=== PATIENT | male | born 1955 | race Caucasian/White ===

== ENCOUNTER → 2016-08-18 | Outpatient (CLI) | payer BC ==
[~2016-08-18] MED LIST: BYSTOLIC10 MG PO; FENOFIBRATE134 MG PO; FLOMAX0.4 M1 PO; LESCOL XL80 MG PO
[2016-08-18 15:30] LABS: POC - CREATININE 1.54 mg/dL (0.64-1.27)
== END | disposition home or self-care (01) ==
LOC: CCAT 14:21
PROVIDERS: Internal Medicine Hematology & Oncology
DX: C85.88 Other specified types of non-Hodgkin lymphoma, lymph nodes of multiple sites (principal); Z53.9 Procedure and treatment not carried out, unspecified reason
CPT/HCPCS: 82565

== ENCOUNTER → 2016-08-20 | Outpatient (CLI) | payer BC ==
--- NOTE | ~2016-08-20 | CT55 ---
[facility] A Service of [facility] & [facility] RADIOLOGY TEXT RESULTS PATIENT: ASHLEY LUNA LOCATION: [facility] : 53 UNIT #: [id number] AGE: [address]: Rita Blackwell MD SEX: M ORDER DR: [id number] [facility] [address] [place], [place] [address] [id number] O MR#: [id number] Acc #: [id number] NAME: ASHLEY LUNA : 1955 SEX: M STUDY DATE/TIME: 08/20/2016 10:52 UNIT: [facility] ROOM: STUDY DESCRIPTION: CT Chest W Con Attending Physician: Rita Blackwell M.D., Ph.D. Ordering Physician: Rita Blackwell M.D., Ph.D. Primary Care Physician: No Primary Care Physician MEDICAL IMAGING REPORT This report is preliminary unless electronic signature is present EXAM CT chest with contrast 08/20/2016 INDICATIONS Restaging non Hodgkin lymphoma. Observation for response to therapy and metastatic disease. PROCEDURE Contrast-enhanced CT chest. 100 mL of Isovue-370. This CT exam was performed with one or more of the following radiation dose reduction techniques: automatic exposure control, adjustment of mA and/or kV according to patient size, and iterative reconstruction. COMPARISON 02/01/2016 FINDINGS Lungs are clear. There is some scarring anterior right upper lobe and medial right lower lobe. No adenopathy. No aggressive appearing bone lesion. Aortic root measures up to 4.1 cm, previously measured at 4.3 cm. Refer to the separately dictated abdomen and pelvis CT for findings below the diaphragm. IMPRESSION No adenopathy in the chest. Dilation of the aortic root is similar to the prior. Dictated by... Neeraj Moser M.D. THIS IS AN ELECTRONICALLY VERIFIED REPORT [facility] A Service of [facility] & [facility] RADIOLOGY TEXT RESULTS PATIENT: ASHLEY LUNA LOCATION: [facility] : 53 UNIT #: [id number] AGE: [address]: Rita Blackwell MD SEX: M ORDER DR: Neeraj Moser M.D. at 08/20/2016 5:05 PM Gwen TD: 08/20/2016 16:13 JOB #: [id number] MEDICAL IMAGING REPORT COPY
--- NOTE | ~2016-08-20 | CT2 ---
[facility] A Service of [facility] RADIOLOGY TEXT RESULTS PATIENT: ASHLEY LUNA LOCATION: [facility] : 53 UNIT #: [id number] AGE: [address]: Rita Blackwell MD SEX: M ORDER DR: [id number] [facility] [address] [place], [place] [address] [id number] O MR#: [id number] Acc #: [id number] NAME: ASHLEY LUNA : 1955 SEX: M STUDY DATE/TIME: 08/20/2016 10:52 UNIT: [facility] ROOM: STUDY DESCRIPTION: CT Abd and Pelv W Cont Attending Physician: Rita Blackwell M.D., Ph.D. Ordering Physician: Rita Blackwell M.D., Ph.D. Primary Care Physician: No Primary Care Physician MEDICAL IMAGING REPORT This report is preliminary unless electronic signature is present EXAM CT abdomen and pelvis with contrast. INDICATION Restaging lymphoma. Observation for response to therapy and disease progression. PROCEDURE Contrast-enhanced CT of the abdomen and pelvis. 100 mL of Isovue-370. This CT exam was performed with one or more of the following radiation dose reduction techniques: automatic exposure control, adjustment of mA and/or kV according to patient size, and iterative reconstruction. COMPARISON 02/01/2016 FINDINGS ABDOMEN WITH CONTRAST: Refer to the separately dictated chest CT for thoracic findings. The liver, spleen, adrenal glands, pancreas unremarkable. Previous cholecystectomy. There are bilateral renal cysts, largest upper pole of the left kidney measures 4.3 cm. The bowel loops are nondilated. Patient is status post left hemicolectomy with a left mid abdominal colostomy. No pathologically enlarged abdominal lymph nodes. PELVIS WITH CONTRAST: No pelvic mass or fluid. No pelvic adenopathy. No aggressive appearing bone lesions. IMPRESSION 1. No adenopathy in the abdomen or pelvis. 2. Incidental findings detailed above. [facility] A Service [facility] RADIOLOGY TEXT RESULTS PATIENT: ASHLEY LUNA LOCATION: [facility] : 53 UNIT #: [id number] AGE: [address]: Rita Blackwell MD SEX: M ORDER DR: Dictated by... Neeraj Moser M.D. THIS IS AN ELECTRONICALLY VERIFIED REPORT Neeraj Moser M.D. at 08/20/2016 5:05 PM EED/suresh TD: 08/20/2016 15:24 JOB #: [id number] MEDICAL IMAGING REPORT COPY
[2016-08-21 09:34] LABS: POC - CREATININE 1.61 mg/dL (0.64-1.27)
== END | disposition home or self-care (01) ==
LOC: CCAT 08:07
PROVIDERS: Internal Medicine Hematology & Oncology
DX: C85.88 Other specified types of non-Hodgkin lymphoma, lymph nodes of multiple sites (principal); I77.810 Thoracic aortic ectasia
CPT/HCPCS: 71260; 74177; 82565; 96360; 96361; Q9967

== ENCOUNTER → 2016-09-16 | Outpatient (CLI) | payer BC ==
--- NOTE | ~2016-09-16 | US77 ---
[facility] A Service of [facility] & [facility] RADIOLOGY TEXT RESULTS PATIENT: ASHLEY LUNA LOCATION: [facility] : 53 UNIT #: [id number] AGE: [address]: Candace Aleman MD SEX: M ORDER DR: [id number] [facility] [address] [place], [place] [address] [id number] O MR#: [id number] Acc #: [id number] NAME: ASHLEY LUNA : 1955 SEX: M STUDY DATE/TIME: 09/16/2016 15:39 UNIT: [facility] ROOM: STUDY DESCRIPTION: US Kidney Bilateral Complete Attending Physician: Candace Aleman M.D. Ordering Physician: Candace Aleman M.D. Primary Care Physician: Patti Valero M.D. MEDICAL IMAGING REPORT This report is preliminary unless electronic signature is present EXAM Renal ultrasound bilateral 09/16/2016 HISTORY Chronic kidney disease stage III and hypertension. FINDINGS The right kidney measured 10.6 cm while the left kidney measures 9.2 cm in longitudinal dimensions. There is no evidence of hydronephrosis or nephrolithiasis. There is a 3.3 cm cyst on the left kidney. No solid mass lesions are identified. There is normal renal cortical echogenicity. Images of the bladder are normal. IMPRESSION 1. Left renal cyst. Otherwise negative renal ultrasound. 2. Images of the bladder are normal. Dictated by... Job Vick M.D. THIS IS AN ELECTRONICALLY VERIFIED REPORT Job Vick M.D. at 09/17/2016 8:22 AM SILVIA/jose alejandro TD: 09/16/2016 20:16 JOB #: [id number] MEDICAL IMAGING REPORT Page 1 of 1 COPY
== END | disposition home or self-care (01) ==
LOC: CGUS 15:18
DX: I12.9 Hypertensive chronic kidney disease with stage 1 through stage 4 chronic kidney disease, or unspecified chronic kidney disease (principal); N18.3 Chronic kidney disease, stage 3 (moderate); E55.9 Vitamin D deficiency, unspecified; N28.1 Cyst of kidney, acquired
CPT/HCPCS: 76770